=== PATIENT | male | born 1950 | race Caucasian/White ===

== ENCOUNTER 2018-06-03 17:16 | Inpatient (IN) | payer BC, MEDICARE ==
[2018-06-03] MEDS ORDERED: Ondansetron ODT 4 MG TAB ONE ×3 (17:32→17:36)
[2018-06-03 18:28] LABS: #Eosinphils 0.1 thou/uL (0.0-0.7); #Lymphocytes 0.9 thou/uL (1.20-3.40); #Monocytes 0.7 thou/uL (0.11-0.59); #Neutrophils 9.9 thou/uL (1.40-6.50); %Basophils 0.1 % (0.0-1.0); %Eosinophils 0.6 % (0.0-10.0); %Lymphocytes 7.5 % (21.0-51.0); %Monocytes 5.9 % (0.0-10.0); %Neutrophils 85.9 % (42.0-75.0); Hemoglobin 12.9 g/dL (14.0-18.0); Red Blood Cell (RBC) Count 5.71 mill/uL (4.70-6.10); White Blood Cell (WBC) Count 11.5 thou/uL (4.8-10.8)
[2018-06-03 18:32] LABS: Mean Corpuscular HGB CONC 31.6 g/dL (32.0-36.0); Mean Corpuscular Hemoglobin 22.5 pg (27.0-31.0); Mean Corpuscular Volume 71.1 fL (78.0-98.0); RBC Distribution Width 14.2 % (11.5-14.5)
[2018-06-03 18:48] LABS: Anisocytosis SLIGHT = 6-15 cells (100X) (0-5/hpf); Basophilic Stippling SLIGHT = 1-2 cells (100X) (None Seen); Elliptocytes SLIGHT = 2-5 cells (100X) (0-1/hpf); Hypochromia SLIGHT = 6-15 cells (100X) (0-5/hpf); MDiff Complete? YES; Mean Platelet Volume 11.8 fL (7.4-10.4); Microcytosis SLIGHT = 6-15 cells (100X) (0-5/hpf); Platelet Count 120 thou/uL (130-400); Platelet Morphology Comment Appears Decreased; Tear Drops SLIGHT = 2-5 cells (100X) (0-1/hpf)
[2018-06-03 18:56] LABS: ALT (SGPT) 17 U/L (8-55); AST (SGOT) 17 U/L (5-34); Acetaminophen Less than 6.0 mcg/mL (10.0-30.0); Alcohol Less than 10 mg/dL (Less than 10); Alkaline Phosphatase 68 U/L (40-150); Anion Gap 15 mmol/L (10-20); BUN (Urea Nitrogen) 20 mg/dL (8.4-25.7); Bilirubin, Total 1.2 mg/dL (0.2-1.2); CK (CPK) 79 U/L (30-200); Calc. Creatinine Clearance 0 mL/min (70-130); Calcium 9.7 mg/dL (7.8-10.44); Carbon Dioxide 25 mmol/L (23-31); Chloride 102 mmol/L (98-107); Estimated GFR-MDRD 63; Globulin 2.8 g/dL (2.4-3.5); Glucose 167 mg/dL (80-115); Lipase 14 U/L (8-78); Potassium 4.6 mmol/L (3.5-5.1); Protein, Total 6.8 g/dL (5.8-8.1); Salicylate Less than 8.0 mg/dL (15.0-30.0); Sodium 137 mmol/L (136-145)
--- NOTE | 2018-06-03 19:17 | CT ---
CT HEAD NONCONTRAST 06/03/18 HISTORY: Altered mental status. FINDINGS: No comparison. There is no evidence of acute intracranial hemorrhage or infarct. Prominent diffuse co rtical atrophy and chronic ischemic small vessel disease are apparent. There is no mass effect or naya ft of midline structures. Ventricles remain well aerated. IMPRESSION: Prominent atrophy and chronic ischemic disease. No acute intracranial abnormalities are demonstrated. POS: BST
--- NOTE | 2018-06-03 19:50 | RAD ---
CHEST ONE VIEW: 06/03/18 HISTORY: Altered mental status. Vomiting. FINDINGS: Cardiac silhouette is magnified by projection. Pulmonary vasculature is unremarkable. Mediastinum is midline. No lobar consolidation or evidence of pneumothorax. automatic presser leads overlie the chest. IMPRESSION: No active cardiopulmonary abnormalities are demonstrated. POS: BST
[2018-06-03] MEDS ORDERED: Aspirin Chewable 81 MG TAB ONE (19:58)
[2018-06-03 21:43] LABS: Amphetamine Not Detected (NotDetected); Barbiturates Screen Not Detected (NotDetected); Benzodiazepine Screen Not Detected (NotDetected); Cocaine Metabolite Screen Not Detected (NotDetected); Medtox Control Line Valid? VALID (VALID); Medtox Reader # READER 1; Methadone Not Detected (NotDetected); Methamphetamine Not Detected (NotDetected); Opiate Screen Not Detected (NotDetected); Oxycodone Screen Not Detected (NotDetected); Phencyclidine (PCP) Not Detected (NotDetected); THC/Cannabinoid Screen Not Detected (NotDetected); Tricyclic Screen Not Detected (NotDetected)
[2018-06-03] MEDS ORDERED: Acetaminophen 650 MG Suppository PR PRN (21:58)
[2018-06-03] MEDS ORDERED: Ondansetron PF 4 MG/2 ML Vial IVP PRN (21:58)
[2018-06-03] MEDS ORDERED: Ondansetron ODT 4 MG TAB PO PRN (21:58)
[2018-06-03 22:12] LABS: Bilirubin Negative (Negative); Blood, Urine Small (Negative); Clarity CLEAR (Clear); Glucose, Urine (Dipstick) Negative (Negative); Leukocyte Negative (Negative); Nitrite Negative (Negative); Protein, Urine (Dipstick) 30 mg/dL (Neg-Trace); Specific Gravity, Urine 1.023 (1.002-1.036); Urobilinogen 0.2 mg/dL (0.2-1.0)
[2018-06-03 22:14] LABS: Bacteria/HPF None Seen HPF (None Seen); Hyaline Casts/LPF 0-3 HYALINE CAST LPF (0-3 Hyaline); Pathc Cast-AUWi Flag 0.43 (0-2.49); Squamous Epithelial 0-3 HPF (0-3); WBC/HPF 0-3 HPF (0-3)
[2018-06-03 23:07] VITALS: BMI 39.6
[2018-06-04 05:41] LABS: #Eosinphils 0.1 thou/uL (0.0-0.7); #Lymphocytes 1.2 thou/uL (1.20-3.40); #Monocytes 0.7 thou/uL (0.11-0.59); #Neutrophils 5.5 thou/uL (1.40-6.50); %Basophils 0.1 % (0.0-1.0); %Eosinophils 1.4 % (0.0-10.0); %Lymphocytes 16.2 % (21.0-51.0); %Monocytes 9.7 % (0.0-10.0); %Neutrophils 72.5 % (42.0-75.0); Hemoglobin 12.2 g/dL (14.0-18.0); Mean Corpuscular HGB CONC 31.9 g/dL (32.0-36.0); Mean Corpuscular Hemoglobin 22.6 pg (27.0-31.0); Mean Corpuscular Volume 70.8 fL (78.0-98.0); Mean Platelet Volume 11.5 fL (7.4-10.4); Platelet Count 112 thou/uL (130-400); RBC Distribution Width 14.2 % (11.5-14.5); White Blood Cell (WBC) Count 7.5 thou/uL (4.8-10.8)
[2018-06-04 05:58] LABS: Anion Gap 12 mmol/L (10-20); BUN (Urea Nitrogen) 16 mg/dL (8.4-25.7); Calc. Creatinine Clearance 111 mL/min (70-130); Calcium 8.9 mg/dL (7.8-10.44); Carbon Dioxide 24 mmol/L (23-31); Cardiac Risk 2.4 (Less than 4.5); Chloride 105 mmol/L (98-107); Cholesterol 85 mg/dl (< 200 Desired); Estimated GFR-MDRD 74; Glucose 100 mg/dL (80-115); HDL Cholesterol 36 mg/dL (>60 Neg Risk); LDL Cholesterol, Calculated 28 mg/dL; Sodium 137 mmol/L (136-145); Triglycerides 103 mg/dL (Less than 150)
--- NOTE | 2018-06-04 07:33 | ULT ---
CAROTID ULTRASOUND WITH JHA SCALE AND DOPPLER DUPLEX COLOR FLOW IMAGING SPECTRAL ANALYSIS PERFORMED: DATE: 06/03/18 CLINICAL INDICATION: CVA, TIA. FINDINGS: There is scattered mild atherosclerotic calcification of the carotid arteries. PEAK SYSTOLIC VELOCITY (cm/s): Right CCA 119 Left CCA 120 Right ICA 72 Left ICA 72 There is antegrade flow within the visualized bilateral vertebral arteries. IMPRESSION: 1. No hemodynamically significant stenosis of the right internal carotid artery. 2. No hemodynamically significant stenosis of the left internal carotid artery. POS: [place]
[2018-06-04] MEDS ORDERED: Famotidine/PF 20 mg/2ml Vial SLOW IVP SCH (09:00)
[2018-06-04] MEDS: Enoxaparin Sodium 40 MG/0.4 ML SYRINGE SC SCH (10:15)
--- NOTE | 2018-06-04 10:15 | MRI ---
MRI BRAIN NONCONTRAST: Date: 06/03/18 HISTORY: Altered mental status. CVA. FINDINGS: There is no evidence of acute intracranial hemorrhage or infarct. Diffuse cortical atrophy. Moderate chronic ischemic small vessel disease within the periventricular white matter. There is no mass effec t or shift of midline structures. Appropriate flow-voids within the arterial structures of the brain base. IMPRESSION: 1. Prominent diffuse atrophy. Chronic ischemic small vessel disease. 2. No acute intracranial abnormalities are demonstrated. POS: [place]
[2018-06-04] MEDS: Acetaminophen 325 MG TAB PO PRN (10:16)
[2018-06-04] MEDS: Aspirin 325 mg Enteric Coated Tablet PO SCH (10:16)
--- NOTE | 2018-06-04 13:44 | HP ---
PRIMARY CARE PROVIDER: Zachery Milan MD. CHIEF COMPLAINT: Vomiting. HISTORY OF PRESENT ILLNESS: Mr. Garcia is a pleasant 67-year-old gentleman who was seen at [facility] on June 04, 2018. He has a history of dementia. He is a poor historian. History was obtained from the patient's and review of medical records. In 2010, the patient reportedly had a hemorrhagic stroke. That same year, he was diagnosed with coronary artery disease and had two coronary stents. He also had kidney surgery and cholecystectomy. In 2016, he had spinal stenosis surgery. In 2016, he had left knee replaced. He was following neurologist, Dr. Stefany Browne. Dr. Stefany Browne is no longer working here. The patient saw a new neurologist a few days ago. His reports that over the last 3 days, she has noticed a change in his cognition. He is more confused. Yesterday, he was waiting outside in the car while his was getting her hair done. Passengers in the next car noticed that he was vomiting. His went out to see him. He was reportedly vomiting. There is also some confusion as to whether he lost his consciousness. reports that the patient has bite moe over his tongue. The patient denies any chest pain or shortness of breath. He denies any fevers or chills. His reports that he used to vomit about 3 times a month. Off late, he has been vomiting more frequently. REVIEW OF SYSTEMS: All other systems reviewed and found to be negative. PAST MEDICAL HISTORY: Gastroesophageal reflux disease, hypertension, coronary artery disease, and dementia. PAST SURGICAL HISTORY: PCI with coronary stents, left knee replacement, left foot surgery with plate and screws, cholecystectomy, and dialysis shunt. PSYCHIATRIC HISTORY: Anxiety. SOCIAL HISTORY: Rare alcohol use, no tobacco use or recreational drug use. FAMILY HISTORY: Cerebral hemorrhage in both parents. ALLERGIES: TETRACYCLINE. CURRENT MEDICATIONS: 1. Allopurinol 100 mg 2 times a day. 2. Amlodipine 5 mg daily. 3. Bupropion 450 mg daily. 4. Donepezil 5 mg at bedtime. 5. Losartan 100 mg daily. 6. Metformin 500 mg 2 times a day. 7. Toprol-XL 50 mg daily. 8. Multivitamins 1 tablet daily. 9. [place]-3 one capsule daily. 10. Ditropan XL 10 mg daily. 11. Potassium citrate 15 mEq 2 times a day. 12. Tamsulosin 0.4 mg daily. PHYSICAL EXAMINATION: GENERAL: On examination, Mr. Garcia is awake and alert, not in acute distress. VITAL SIGNS: Blood pressure is 121/74, pulse 64, respiratory rate 16, and oxygen saturation 92% on room air. He is afebrile. He is obese, with a BMI of 39.6. EYES: No scleral icterus, no conjunctival pallor. ENT: Moist mucosal membranes. No oropharyngeal erythema or exudates. The patient has bite moe over his tongue. NECK: Supple, nontender, trachea is midline. RESPIRATORY: Accessory muscles of breathing are not active. Chest wall movements are symmetric bilaterally. Lungs are clear to auscultation without wheeze, rhonchi, or crepitations. CARDIOVASCULAR: S1 and S2 are heard, regular. Peripheral pulses palpable. No carotid bruit. No pericardial rub. ABDOMEN: Soft, nontender, bowel sounds heard, no hepatomegaly, no splenomegaly. NEUROLOGIC: Cranial nerves 2 through 12 are intact. Power is 5/5 in all four extremities. No focal motor or sensory deficits. Deep tendon reflexes 2+, plantars downgoing bilaterally. MUSCULOSKELETAL: Power is 5/5 in all four extremities. SKIN: No rashes or subcutaneous nodules. LYMPHATIC: No cervical lymphadenopathy. PSYCHIATRIC: Normal mood, normal affect, the patient is oriented to person and place only, not to time. LABORATORY DATA: Mr. Garcia's labs and investigations were reviewed. I reviewed his electrocardiogram, which shows normal sinus rhythm, no ST changes to suggest an acute coronary syndrome. I also reviewed his chest x-ray, which does not show any pulmonary infiltrates. He had noncontrast CT scan of the brain, which did not show any acute intracranial abnormality. He has prominent atrophy and chronic ischemic disease. MRI of the brain did not show any acute intracranial abnormality. He has chronic ischemic small-vessel disease. Carotid Doppler study did not show any hemodynamically significant of either internal carotid artery. He also had 2D echocardiogram, report is pending. He had leukocytosis when he initially presented to the emergency room, which has normalized now. He has microcytic anemia with hemoglobin 12.2, thrombocytopenia with platelet count of 112,000, unremarkable comprehensive metabolic profile, normal prolactin, normal TSH, fasting triglyceride level of 103, cholesterol 85, LDL cholesterol 28, HDL cholesterol 36, urinalysis positive for protein, small amount of blood and RBCs and negative urine toxicology screen. ASSESSMENT AND PLAN: Mr. Garcia is a pleasant 67-year-old gentleman who was seen at [facility] on June 04, 2018. His problem list includes: 1. Acute metabolic encephalopathy: This is superimposed on the background of dementia. The patient is being admitted to the hospital for further workup. He already had some testing done, as reported in the results section. He is awaiting Neurology Service input. I will also order an EEG to rule out seizure and postictal confusion as a cause of encephalopathy. 2. Nausea and vomiting: The patient's reports that his nausea and vomiting have been getting worse. We will consult the GI Service for opinion and help with management. 3. Dementia: We will continue donepezil. 4. Diabetes mellitus type 2: We will start Accu-Cheks and insulin sliding scale. 5. Coronary artery disease: Appears to be stable. 6. Hypertension: We will resume home medications, monitor vital signs and titrate antihypertensives as needed. Many thanks for allowing me to participate in your patient's care. Please feel free to contact me with any questions or concerns. LEVEL OF RISK: High. LEVEL OF COMPLEXITY: High. Job ID: [id number]
[2018-06-04] MEDS: metFORMIN 500 MG TAB PO SCH (17:01)
[2018-06-04] MEDS ORDERED: Sodium Chloride 0.9% (PF) 10 ML VIAL FS PRN (17:24)
[2018-06-04] MEDS: Potassium Citrate 10 MEQ TAB PO SCH (20:18)
[2018-06-04] MEDS: Allopurinol 100 MG TAB PO SCH (20:19)
[2018-06-04] MEDS: Tamsulosin HCl 0.4 MG CAP PO SCH (20:19)
[2018-06-04] MEDS: Pantoprazole 40 MG VIAL IVP SCH (20:19)
[2018-06-04] MEDS: Donepezil HCl 5 MG TAB PO SCH (20:19)
--- NOTE | 2018-06-04 20:34 | RAD ---
ABDOMEN ONE VIEW: 06/04/18 HISTORY: Abdomen pain. FINDINGS: Gas and stool over the rectum. Small bowel gas pattern is nonspecific. Metallic clips overlie the gal lbladder fossa and right lower pelvis. Phleboliths overlie the pelvis. IMPRESSION: Postoperative changes. Nonspecific small bowel gas pattern. POS: BST
[2018-06-04] MEDS ORDERED: Famotidine 20 MG TAB PO SCH (21:00)
[2018-06-05 06:05] LABS: Anion Gap 11 mmol/L (10-20); BUN (Urea Nitrogen) 15 mg/dL (8.4-25.7); Calc. Creatinine Clearance 117 mL/min (70-130); Carbon Dioxide 25 mmol/L (23-31); Chloride 107 mmol/L (98-107); Estimated GFR-MDRD 79; Glucose 87 mg/dL (80-115); Potassium 3.9 mmol/L (3.5-5.1); Sodium 139 mmol/L (136-145)
[2018-06-05 06:37] LABS: #Eosinphils 0.1 thou/uL (0.0-0.7); #Lymphocytes 1.2 thou/uL (1.20-3.40); #Monocytes 0.6 thou/uL (0.11-0.59); #Neutrophils 3.6 thou/uL (1.40-6.50); %Basophils 0.2 % (0.0-1.0); %Eosinophils 2.4 % (0.0-10.0); %Lymphocytes 21.6 % (21.0-51.0); %Monocytes 11.1 % (0.0-10.0); %Neutrophils 64.7 % (42.0-75.0); MDiff Complete? YES; Mean Corpuscular HGB CONC 31.8 g/dL (32.0-36.0); Mean Corpuscular Hemoglobin 22.1 pg (27.0-31.0); Mean Corpuscular Volume 69.4 fL (78.0-98.0); Mean Platelet Volume 11.6 fL (7.4-10.4); Microcytosis SLIGHT = 6-15 cells (100X) (0-5/hpf); Platelet Count 108 thou/uL (130-400); Platelet Morphology Comment Appears Decreased; RBC Distribution Width 14.1 % (11.5-14.5); Red Blood Cell (RBC) Count 5.41 mill/uL (4.70-6.10); White Blood Cell (WBC) Count 5.6 thou/uL (4.8-10.8)
[2018-06-05] MEDS: metFORMIN 500 MG TAB PO SCH ×2 (07:47→16:33)
[2018-06-05] MEDS: Enoxaparin Sodium 40 MG/0.4 ML SYRINGE SC SCH (07:47)
[2018-06-05] MEDS: Aspirin 325 mg Enteric Coated Tablet PO SCH (07:48)
[2018-06-05] MEDS: Pantoprazole 40 MG VIAL IVP SCH (11:56)
[2018-06-05] MEDS: Tamsulosin HCl 0.4 MG CAP PO SCH ×2 (12:03→20:39)
[2018-06-05] MEDS: Allopurinol 100 MG TAB PO SCH ×2 (12:03→20:39)
[2018-06-05] MEDS: Potassium Citrate 10 MEQ TAB PO SCH ×2 (12:03→20:43)
[2018-06-05] MEDS: Multivitamin W/ Minerals 1 TAB PO SCH (12:04)
[2018-06-05] MEDS: Bupropion 150 MG XL TAB PO SCH (12:10)
[2018-06-05] MEDS: Amlodipine 5 MG TAB PO SCH (12:10)
[2018-06-05] MEDS: Losartan 25 MG TAB PO SCH (12:10)
[2018-06-05] MEDS: Oxybutynin ER 5 MG TAB PO SCH (12:11)
--- NOTE | 2018-06-05 13:07 | PDOC.PN ---
- Subjective Encounter Start Date: 06/05/18 Encounter Start Time: 13:05 Pt seen for followup re: acute metabolic encephalopathy. feels better today, no complaints. - Objective Resuscitation Status - Order Detail: 06/04/18 12:49 Resuscitation Status Routine Resuscitation Status: FULL: Full Resuscitation Discussed with: patient's Vital Signs & Weight: Vital Signs (12 hours) Temp Pulse Resp BP Pulse Ox 06/05/18 12:10 55 L 06/05/18 11:56 98.3 F 55 L 16 125/79 93 L 06/05/18 08:00 98.1 F 60 20 125/83 94 L 06/05/18 04:00 98.8 F 62 16 121/76 93 L Weight Admit Weight 238 lb Weight 238 lb I&O: 06/04/18 06/05/18 06/06/18 06:59 06:59 06:59 Intake Total 1195 Balance 1195 Result Diagrams: 06/05/18 04:38 06/05/18 04:38 Additional Labs: Accuchecks 06/05/18 06/05/18 06/04/18 12:03 05:57 20:15 POC Glucose 90 91 136 H 06/04/18 16:33 POC Glucose 119 H Phys Exam - Physical Examination Obese HEENT: moist MMs Neck: supple Respiratory: clear to auscultation bilateral Cardiovascular: RRR Gastrointestinal: soft Neurological: moves all 4 limbs Psychiatric: normal affect Deviation from normal: Oriented to person and place, not to time Dx/Plan (1) Acute metabolic encephalopathy Code(s): G93.41 - METABOLIC ENCEPHALOPATHY Status: Acute Comment: Improving (2) DM2 (diabetes mellitus, type 2) Status: Chronic Comment: controlled (3) Dementia Code(s): F03.90 - UNSPECIFIED DEMENTIA WITHOUT BEHAVIORAL DISTURBANCE Status: Chronic Comment: continue donepezil (4) HTN (hypertension) Code(s): I10 - ESSENTIAL (PRIMARY) HYPERTENSION Status: Chronic Comment: controlled (5) Nausea and vomiting Code(s): R11.2 - NAUSEA WITH VOMITING, UNSPECIFIED Status: Resolved Comment : s/p EGD - Plan plan discussed w/ family, PT/OT, out of bed/ambulate * . Await urology consult, urine culture Review of Systems - Review of Systems Respiratory: negative: Cough, Shortness of Breath, SOB with Excertion, Pleuritic Pain, Wheezing Cardiovascular: negative: chest pain, palpitations, orthopnea, paroxysmal nocturnal dyspnea, edema, light headedness - Medications/Allergies Allergies/Adverse Reactions: Allergies Allergy/AdvReac Type Severity Reaction Status Date / Time tetracycline Allergy Severe Anaphylaxis Verified 06/03/18 23:36 Medications: Current Medications Acetaminophen (Tylenol) 650 mg PO Q4H PRN PRN Reason: Headache/Fever/Mild Pain (1-3) Last Admin: 06/04/18 10:16 Dose: 650 mg Acetaminophen (Tylenol) 650 mg AK Q4H PRN PRN Reason: Headache/Fever/Mild Pain (1-3) Allopurinol (Zyloprim) 100 mg PO BID [facility] Last Admin: 06/05/18 12:03 Dose: Not Given Amlodipine Besylate (Norvasc) 5 mg PO DAILY [facility] Last Admin: 06/05/18 12:10 Dose: 5 mg Aspirin (Ecotrin) 325 mg PO DAILY [facility] Last Admin: 06/05/18 07:48 Dose: Not Given Bupropion HCl (Wellbutrin Xl) 450 mg PO DAILY [facility] Last Admin: 06/05/18 12:10 Dose: 450 mg Donepezil HCl (Aricept) 5 mg PO HS [facility] Last Admin: 06/04/18 20:19 Dose: 5 mg Enoxaparin Sodium (Lovenox) 40 mg SC 0900 [facility] Last Admin: 06/05/18 07:47 Dose: Not Given Fish Oil (Fish Oil) 1,000 mg PO [facility] Iron/Minerals/Multivitamins (Theragran M) 1 tab PO DAILY [facility] Last Admin: 06/05/18 12:04 Dose: Not Given Losartan Potassium (Cozaar) 100 mg PO DAILY [facility] Last Admin: 06/05/18 12:10 Dose: 100 mg Metformin HCl (Glucophage) 500 mg PO BID[facility] Last Admin: 06/05/18 07:47 Dose: Not Given Metoprolol Succinate (Toprol Xl) 50 mg PO DAILY [facility] Last Admin: 06/05/18 06:04 Dose: 50 mg Ondansetron HCl (Zofran Odt) 4 mg PO Q6H PRN PRN Reason: Nausea/Vomiting Ondansetron HCl (Zofran) 4 mg IVP Q6H PRN PRN Reason: Nausea/Vomiting Oxybutynin Chloride (Ditropan Xl) 10 mg PO DAILY [facility] Last Admin: 06/05/18 12:11 Dose: 10 mg Pantoprazole Sodium (Protonix) 40 mg PO DAILY [facility] Pantoprazole Sodium (Protonix) 40 mg PO 1200 [facility] Stop: 06/05/18 14:00 Last Admin: 06/05/18 12:11 Dose: 40 mg Potassium Citrate (Urocit K) 15 meq PO BID [facility] Last Admin: 06/05/18 12:03 Dose: Not Given Sodium Chloride (Flush - Normal Saline) 10 ml IVF PRN PRN PRN Reason: Saline Flush Sodium Chloride (Normal Saline Pf) 10 ml FS PRN PRN PRN Reason: RECONSTITUTION Last Admin: 06/04/18 20:19 Dose: 10 ml Tamsulosin HCl (Flomax) 0.4 mg PO BID [facility] Last Admin: 06/05/18 12:03 Dose: Not Given
[2018-06-05] MEDS ORDERED: PROPOFOL 200 MG/20 ML VIAL ONE (14:36)
[2018-06-05] MEDS: Acetaminophen 325 MG TAB PO PRN (17:20)
[2018-06-05] MEDS: Donepezil HCl 5 MG TAB PO SCH (20:38)
[2018-06-05] MEDS ORDERED: Fish Oil 1,000 MG CAP PO SCH (21:00)
[2018-06-06] MEDS: Acetaminophen 325 MG TAB PO PRN ×2 (00:18→08:05)
[2018-06-06 05:41] LABS: #Eosinphils 0.2 thou/uL (0.0-0.7); #Lymphocytes 1.3 thou/uL (1.20-3.40); #Monocytes 0.7 thou/uL (0.11-0.59); #Neutrophils 4.5 thou/uL (1.40-6.50); %Eosinophils 2.3 % (0.0-10.0); %Lymphocytes 20.1 % (21.0-51.0); %Monocytes 10.1 % (0.0-10.0); %Neutrophils 67.5 % (42.0-75.0); Hemoglobin 12.6 g/dL (14.0-18.0); Mean Corpuscular Hemoglobin 21.9 pg (27.0-31.0); Mean Corpuscular Volume 70.8 fL (78.0-98.0); Mean Platelet Volume 11.1 fL (7.4-10.4); Platelet Count 120 thou/uL (130-400); RBC Distribution Width 14.3 % (11.5-14.5); Red Blood Cell (RBC) Count 5.73 mill/uL (4.70-6.10); White Blood Cell (WBC) Count 6.6 thou/uL (4.8-10.8)
[2018-06-06 06:03] LABS: Anion Gap 14 mmol/L (10-20); BUN (Urea Nitrogen) 17 mg/dL (8.4-25.7); Calc. Creatinine Clearance 92 mL/min (70-130); Calcium 9.2 mg/dL (7.8-10.44); Carbon Dioxide 23 mmol/L (23-31); Chloride 105 mmol/L (98-107); Estimated GFR-MDRD 60; Glucose 126 mg/dL (80-115); Sodium 138 mmol/L (136-145)
[2018-06-06 07:41] VITALS: TEMP 98.4
[2018-06-06] MEDS: Enoxaparin Sodium 40 MG/0.4 ML SYRINGE SC SCH (08:04)
[2018-06-06] MEDS: Bupropion 150 MG XL TAB PO SCH (08:05)
[2018-06-06] MEDS: Amlodipine 5 MG TAB PO SCH (08:06)
[2018-06-06] MEDS: Oxybutynin ER 5 MG TAB PO SCH (08:06)
[2018-06-06] MEDS: Losartan 25 MG TAB PO SCH (08:06)
[2018-06-06] MEDS: metFORMIN 500 MG TAB PO SCH (08:06)
[2018-06-06] MEDS: Aspirin 325 mg Enteric Coated Tablet PO SCH (08:07)
[2018-06-06] MEDS: Potassium Citrate 10 MEQ TAB PO SCH (08:07)
[2018-06-06] MEDS: Tamsulosin HCl 0.4 MG CAP PO SCH (08:07)
[2018-06-06] MEDS: Multivitamin W/ Minerals 1 TAB PO SCH (08:07)
[2018-06-06] MEDS: Allopurinol 100 MG TAB PO SCH (08:08)
[2018-06-06] MEDS ORDERED: Lidocaine 2% Viscous Solution 10 ML, Aluminum & Magnesium Hydroxide 30 ML SSP SCH (09:15)
--- NOTE | 2018-06-06 09:42 | CON ---
DATE OF CONSULTATION: 06/04/2018 REASON FOR CONSULT: I have been consulted by Dr. Benjamin regarding a few episodes of vomiting this patient has had recently. HISTORY OF PRESENT ILLNESS: It comes mainly from the patient's . The patient has had a previous stroke back in 2010, it was hemorrhagic, he does add to the history though as well. Mr. Garcia was brought to the emergency room by his yesterday who is with him. She had been out in the retail setting and was waiting for her in the car, which is not unusual and since he has had a stroke, he has been retired and he will go to therapy but some days he will accompany her on her chores and other events. Apparently, she received a call overhead from the store facility she was in that her is having problems, so she went back to the parking lot and apparently while sitting in the car, another person in the car near him noticed that he had thrown up and then became unresponsive. They described the appearance of what was going on to EMS as possibly being a stroke. The patient's notes the vomit was dark in color, but he had no blood in the vomit. When she got there, he was not himself, but definitely was not unconscious. He had no pain or complaints at that time and did not injure himself. She states within about 30 minutes to an hour, he was back to himself, but ultimately they came in because of that for evaluation. Emergency note states that passerby or the person in the adjacent car saw him unconscious and covered in vomit and that is why EMS was summoned. The notes about earlier this week several days, she had come home and he had an episode of vomiting and he had a lot of blood in his mouth as he bit his tongue and really did not remember the episode. He had no pain and no evidence of fall or trauma from falls, but he was unclear exactly what happened. These two episodes were new. He has had some episodes in the past several months, a little bit of nausea, occasionally regurgitating after a meal. In fact, he had an upper GI recently at the [facility] that showed some reflux, but not much else. A talk with the patient and the , there has been no change in his appetite. He has been a good eater. He has had no melena. His bowels move well. He denies abdominal pain. He felt completely fine between these episodes. He has never had any prior history of seizures. He denies any chest pain or chest tightness. He denies any diaphoresis with these episodes. He denies any even nausea. He said the episodes come on quite quickly. REVIEW OF SYSTEMS: He had no fever, chills, rashes, myalgias, arthralgias, headaches, gross bloody emesis, melena, or rectal bleeding. He has had no weight loss. No chest pain, shortness of breath, diaphoresis, dysphagia, or odynophagia. PAST MEDICAL HISTORY: Reflux. He had been on a PPI for a few weeks earlier this year, but that was stopped. Apparently, he was having some lot of nausea and belching while he was on higher dose of donepezil but that was cut back and the symptoms stopped, so he stopped the medication. He has some sleep apnea and he using BiPAP while sleeping. History of hypertension, coronary artery disease, mild vascular dementia, and prior strokes. PAST SURGICAL HISTORY: Heart stent x2, left knee replacement, left foot has plate and screw, previous cholecystectomy, previous colonoscopy [place] [address] Vargas. Surgical history of dialysis shunt in the past, prior history of back surgery. PSYCHIATRIC HISTORY: None. SOCIAL HISTORY: Rarely uses alcohol. No tobacco. No drug use. FAMILY HISTORY: Parents has cerebral hemorrhage. ALLERGIES: TETRACYCLINE. MEDICATIONS: 1. Allopurinol. 2. Amlodipine. 3. Bupropion. 4. Donepezil. 5. Losartan. 6. Metformin. 7. Metoprolol. 8. Multivitamin. 9. [place]-3. 10. Ditropan. 11. Tamsulosin. 12. Potassium. Medications here; 1. Tylenol. 2. Allopurinol. 3. Norvasc. 4. Aspirin 325. 5. Wellbutrin. 6. Aricept which is donepezil. 7. Lovenox subcu. 8. Pepcid. 9. Theragran. 10. Losartan. 11. Metformin. 12. Zofran. 13. Ditropan. 14. Potassium citrate. 15. Flomax. PHYSICAL EXAMINATION: GENERAL: The patient is resting comfortably in bed. He has actually had a pretty good sense of humor and seems to have a pretty good acknowledgement of his history, but does not remember some details fully. VITAL SIGNS: Temperature is 98.4, pulse 62, and blood pressure 115/78. LUNGS: Clear. HEART: Regular rate and rhythm. No rubs, gallops, or murmurs. ABDOMEN: Soft and nontender without palpable hepatomegaly. EXTREMITIES: No clubbing, cyanosis, or edema. ABDOMEN: Slightly protuberant, but he is not overly obese. There is no rebound. There is no guarding. There is no right upper quadrant tenderness. There is no hernias noted. LABORATORY DATA: White count 7.5, hemoglobin 12.3, and platelet count 112, was high as 125. On 06/04/2018, basement profile normal. On 06/03/2018, liver function is normal. Bilirubin 1.2, AST and ALT are 17 and 17, alkaline phosphatase 68, lipase is 14. TSH is 1.6. Prolactin was 11. Ammonia was 24. ASSESSMENT: Episodes of emesis for the past couple of days, which have been associated with some changes in mentation or questionable maybe a seizure. He has had an MRI here of his brain and nondiagnostic laboratory studies, Dopplers, and a chest x-ray which have been normal. He has a history of coronary artery disease, but denies any chest pain or angina, shortness of breath or diaphoresis. Doppler studies have been normal. There has been some concern for reflux recently and apparently, he has of his upper GI symptoms a few months ago because he had an upper GI at the [facility]. He does have a history of diabetes, gastroparesis is a possibility, but his notes that his sugars have been very well controlled. RECOMMENDATIONS: 1. If he has no further neurologic events, we would consider an EGD tomorrow. The nurses told me that may be he is going to need Neurology consult at some point time during this hospitalization and has not happened yet and he may be having EEG at some point in time. Although if he would have any further neurologic processes, we would have to hold off any invasive studies. I am going to put him on a PPI, get an x-ray to make sure there are no signs of overt constipation or obstipation. 2. He has some thrombocytopenia, etiology that is unclear. I was concerned for portal hypertensive change, but his liver enzymes are normal and his amylase is normal. We will talk with the family further about that. If it has not been a chronic issue, we can consider further evaluation. Job ID: [id number]
[2018-06-06 12:16] VITALS: BP 122/76
--- NOTE | 2018-06-06 12:55 | OP ---
DATE OF PROCEDURE: 06/05/2018 PROCEDURE PERFORMED: Esophagogastroduodenoscopy with biopsy. PREPROCEDURE DIAGNOSES: 1. Intermittent vomiting. 2. Episode of vomiting of dark material a few days ago with a questionable episode of loss of consciousness and tongue-biting. POSTPROCEDURE DIAGNOSES: 1. LA grade A reflux esophagitis with slightly irregular squamocolumnar junction. Biopsied to rule out Andujar's. 2. Hiatal hernia 3 cm extending from the hiatus at 41 cm to the proximal aspect of the gastric folds with Z-line at 38 cm. 3. Mild erosive gastritis in the antrum. Biopsies obtained. No bleeding sites identified. 4. Otherwise, normal stomach, duodenum, and esophagus. RECOMMENDATIONS: 1. Protonix 40 mg p.o. daily. 2. In light of the intermittent vomiting, we will go ahead and get a gastric emptying scan tomorrow if the patient is still here. If he is going to go home, may consider as an outpatient if he does not improve. ANESTHESIA: TIVA. PROCEDURE IN DETAIL: The patient was informed of the risks, benefits, and possible complications of endoscopy including perforation, reaction to medication, and aspiration, and informed consent was obtained. The patient was brought to endoscopy suite, where he was sedated in gradual fashion. Once he was comfortable, a bite block was placed inside his orifice. The endoscope was advanced to the esophagus, stomach, and second and third portions of the duodenum and slowly removed. There was good visualization of mucosa. There were no mass lesions or AV malformations identified. However, there was reflux esophagitis, LA grade A at the distal esophagus at about 38 cm inside orifice. The Z-line was a little bit irregular, but there was no evidence of long segment Andujar's. Biopsies were obtained from this area. The hiatus was noted at 40 cm. The stomach was entered and found to be normal except for some small nonbleeding erosions in the antrum. Biopsies were obtained of these. Retroflexed views in the stomach were normal showing a hiatal hernia. The duodenum was normal up to third portion. The scope was removed. The patient tolerated the procedure well. There were no complications. Job ID: [id number]
--- NOTE | 2018-06-06 12:57 | PDOC.PN ---
- Subjective Encounter Start Date: 06/06/18 Encounter Start Time: 07:20 Pt seen for followup re: acute metabolic encephalopathy. Feels better. No nausea or vomiting. - Objective Resuscitation Status - Order Detail: 06/04/18 12:49 Resuscitation Status Routine Resuscitation Status: FULL: Full Resuscitation Discussed with: patient's Vital Signs & Weight: Vital Signs (12 hours) Temp Pulse Pulse Resp BP BP Pulse Ox 06/06/18 10:02 62 122/76 06/06/18 08:06 64 06/06/18 07:40 98.4 F 64 20 137/86 96 06/06/18 04:00 98.2 F 65 16 138/83 93 L Weight Admit Weight 238 lb Weight 238 lb I&O: 06/05/18 06/06/18 06/07/18 06:59 06:59 06:59 Intake Total 1195 1260 Output Total 150 Balance 1195 1110 Result Diagrams: 06/06/18 05:25 06/06/18 05:25 Additional Labs: Accuchecks 06/06/18 06/05/18 06/05/18 06:10 20:24 16:35 POC Glucose 128 H 87 161 H Phys Exam - Physical Examination obesity HEENT: moist MMs Neck: supple Respiratory: clear to auscultation bilateral Cardiovascular: RRR Gastrointestinal: soft Musculoskeletal: edema present Neurological: moves all 4 limbs Psychiatric: normal affect Dx/Plan (1) Acute metabolic encephalopathy Code(s): G93.41 - METABOLIC ENCEPHALOPATHY Status: Acute Comment: Improved (2) DM2 (diabetes mellitus, type 2) Status: Chronic Comment: controlled (3) Dementia Code(s): F03.90 - UNSPECIFIED DEMENTIA WITHOUT BEHAVIORAL DISTURBANCE Status: Chronic Comment: on donepezil (4) HTN (hypertension) Code(s): I10 - ESSENTIAL (PRIMARY) HYPERTENSION Status: Chronic Comment: controlled (5) Nausea and vomiting Code(s): R11.2 - NAUSEA WITH VOMITING, UNSPECIFIED Status: Resolved - Plan * . EEG today. Gastric emptying study today. Review of Systems - Review of Systems Cardiovascular: negative: chest pain, palpitations, orthopnea, paroxysmal nocturnal dyspnea, edema, light headedness Gastrointestinal: negative: Nausea, Vomiting, Abdominal Pain, Diarrhea, Constipation, Melena, Hematochezia - Medications/Allergies Allergies/Adverse Reactions: Allergies Allergy/AdvReac Type Severity Reaction Status Date / Time tetracycline Allergy Severe Anaphylaxis Verified 06/03/18 23:36 Medications: Current Medications Acetaminophen (Tylenol) 650 mg PO Q4H PRN PRN Reason: Headache/Fever/Mild Pain (1-3) Last Admin: 06/06/18 08:05 Dose: 650 mg Acetaminophen (Tylenol) 650 mg NE Q4H PRN PRN Reason: Headache/Fever/Mild Pain (1-3) Allopurinol (Zyloprim) 100 mg PO BID [facility] Last Admin: 06/06/18 08:08 Dose: 100 mg Amlodipine Besylate (Norvasc) 5 mg PO DAILY [facility] Last Admin: 06/06/18 08:06 Dose: 5 mg Aspirin (Ecotrin) 325 mg PO DAILY [facility] Last Admin: 06/06/18 08:07 Dose: 325 mg Bupropion HCl (Wellbutrin Xl) 450 mg PO DAILY [facility] Last Admin: 06/06/18 08:05 Dose: 450 mg Donepezil HCl (Aricept) 5 mg PO [facility] Last Admin: 06/05/18 20:38 Dose: 5 mg Enoxaparin Sodium (Lovenox) 40 mg SC 0900 [facility] Last Admin: 06/06/18 08:04 Dose: 40 mg Fish Oil (Fish Oil) 1,000 mg PO [facility] Last Admin: 06/05/18 20:38 Dose: 1,000 mg Iron/Minerals/Multivitamins (Theragran M) 1 tab PO DAILY [facility] Last Admin: 06/06/18 08:07 Dose: 1 tab Losartan Potassium (Cozaar) 100 mg PO DAILY [facility] Last Admin: 06/06/18 08:06 Dose: 100 mg Metformin HCl (Glucophage) 500 mg PO BID[facility] Last Admin: 06/06/18 08:06 Dose: 500 mg Metoprolol Succinate (Toprol Xl) 50 mg PO DAILY [facility] Last Admin: 06/06/18 08:07 Dose: 50 mg Ondansetron HCl (Zofran Odt) 4 mg PO Q6H PRN PRN Reason: Nausea/Vomiting Ondansetron HCl (Zofran) 4 mg IVP Q6H PRN PRN Reason: Nausea/Vomiting Oxybutynin Chloride (Ditropan Xl) 10 mg PO DAILY [facility] Last Admin: 06/06/18 08:06 Dose: 10 mg Pantoprazole Sodium (Protonix) 40 mg PO DAILY [facility] Last Admin: 06/06/18 08:07 Dose: 40 mg Potassium Citrate (Urocit K) 15 meq PO BID [facility] Last Admin: 06/06/18 08:07 Dose: 15 meq Sodium Chloride (Flush - Normal Saline) 10 ml IVF PRN PRN PRN Reason: Saline Flush Sodium Chloride (Normal Saline Pf) 10 ml FS PRN PRN PRN Reason: RECONSTITUTION Last Admin: 06/04/18 20:19 Dose: 10 ml Tamsulosin HCl (Flomax) 0.4 mg PO BID [facility] Last Admin: 06/06/18 08:07 Dose: 0.4 mg
--- NOTE | 2018-06-06 15:29 | EEG ---
Referring Physician: Leon FIGUEROA EEG # [id number] TEST TYPE: ROUTINE PORTABLE INPATIENT REPORT: AN EEG USING THE INTERNATIONAL TEN-TWENTY SYSTEM OF ELECTRODE PLACEMENT WAS PERFORMED. The best waking background is an 8 hertz occipitally dominant alpha frequency. The patient appeared drowsy at the start of the study. Photic stimulation was unremarkable. No epileptiform features were seen. IMPRESSION: THIS IS A NORMAL AWAKE AND DROWSY EEG. Entry Level Manufacturing Engineer: CHANCE Senior Environmental Consultant: [email or web address] ISAACS
--- NOTE | 2018-06-06 15:44 | NM ---
NUCLEAR MEDICINE GASTRIC EMPTYING WITH MEAL: HISTORY: Nausea and vomiting. COMPARISON: None. TECHNIQUE: The exam was performed after the oral administration of 1.8 millicuries of technetium 99m sulfur magdalena oid in egg. FINDINGS: At one-half hour, there was 42% gastric emptying. At one hour, there was 49% gastric emptying. At t wo hours, there was 59% gastric emptying. At three hours, there was 62% gastric emptying. At four h ours, there was 91% gastric emptying. IMPRESSION: Borderline gastric emptying with approximately 9% remaining at four hours and 38% remaining at three hours. POS: MONALISA
--- NOTE | 2018-06-06 16:28 | PRG ---
DATE OF SERVICE: 06/06/2018 SUBJECTIVE: Mr. Garcia, who is doing well today without complaints. He did have a gastric emptying scan, which showed borderline with 91% emptying at 4 hours. He has had no further vomiting since he has been here. Reportedly his EEG has been normal. OBJECTIVE: VITAL SIGNS: Stable. NECK: Supple. LUNGS: Clear. ABDOMEN: Nontender. ASSESSMENT: Nausea and vomiting, resolved. He does have some reflux esophagitis and mild gastritis, which was biopsied. RECOMMENDATIONS: 1. PPI once daily. 2. Avoid NSAIDs. 3. We will talk to the about issues with Namenda with anorexia and evidence of nausea to watch out for those types of symptoms. I will call them next week with the results of his gastric biopsies. Job ID: [id number]
--- NOTE | 2018-06-07 04:53 | DIS ---
DATE OF ADMISSION: 06/03/2018 DATE OF DISCHARGE: 06/06/2018 PRIMARY CARE PROVIDER: Zachery Milan MD DISCHARGE DIAGNOSES: 1. Acute metabolic encephalopathy. 2. borderline gastric emptying. CONSULTATIONS DURING THIS HOSPITALIZATION: 1. Gastroenterology, Dr. Adkins. 2. Neurology, Dr. Galan. CONDITION OF PATIENT ON THE DAY OF DISCHARGE: Stable. I assessed Mr. Garcia on the day of discharge. Please refer to my daily hospitalist progress note for further details regarding this [id number] encounter. DISCHARGE MEDICATIONS: His pre-admission home medications were continued as dictated on history and physical note dated June 04, 2018. Please note that the patient was also on pantoprazole 40 mg daily prior to admission and this is being continued. HOSPITAL COURSE: Mr. Garcia is a pleasant 67-year-old gentleman, who was admitted to [facility] on June 03, 2018, for acute metabolic encephalopathy, nausea, and vomiting. Please refer to my history and physical note dated June 04, 2018, for further details. He was seen by GI Service. He underwent EGD on June 05, which showed LA grade A reflux esophagitis with slightly irregular squamocolumnar junction, which was biopsied to rule out Andujar's. He also had hiatal hernia, mild erosive gastritis in the antrum from which biopsies were obtained. He was recommended to continue Protonix 40 mg daily. He also had a gastric emptying scan, which was borderline gastric emptying. He was seen by Neurology Service. MRI of the brain did not show any acute intracranial abnormality. He had prominent diffuse atrophy and chronic ischemic small-vessel disease. Carotid Dopplers did not show any hemodynamically significant stenosis of internal carotid arteries. He also had 2D echocardiogram, which showed left ventricular ejection fraction of 50% to 55%, mildly dilated left atrium, mild mitral regurgitation, and mild tricuspid regurgitation. EEG did not show any evidence of seizure. He is being discharged home in a stable condition. He is advised to follow up with his primary care provider, as well as with his neurologist at [facility]. On the day of discharge, he has white count 6600, hemoglobin 12.6, platelet count 120,000, normal electrolytes and normal creatinine. During this hospitalization , he had triglycerides 103, cholesterol 85, LDL cholesterol 28, and HDL cholesterol 36. Many thanks for allowing me to participate in your patient's care. Please feel free to contact me with any questions or concerns. DISCHARGE DESTINATION: Home. TIME SPENT: Total amount of time spent coordinating this discharge: 33 minutes. Job ID: [id number] [email or web address]
== END 2018-06-06 17:31 | disposition home or self-care (01) | DRG 72 ==
LOC: ERS 17:16 → 2SE 19:22
PROVIDERS: ADMIT Hospitalist; ATTEND Hospitalist
PROC: 0DB68ZX Excision of Stomach, Via Natural or Artificial Opening Endoscopic, Diagnostic (ICD-10-PCS; principal; 2018-06-05)
PROC: 0DB48ZX Excision of Esophagogastric Junction, Via Natural or Artificial Opening Endoscopic, Diagnostic (ICD-10-PCS; 2018-06-05)
DX: G93.41 Metabolic encephalopathy (principal); F03.90 Unspecified dementia, unspecified severity, without behavioral disturbance, psychotic disturbance, mood disturbance, and anxiety; E11.9 Type 2 diabetes mellitus without complications; I25.10 Atherosclerotic heart disease of native coronary artery without angina pectoris; I10 Essential (primary) hypertension; K21.0 Gastro-esophageal reflux disease with esophagitis; K44.9 Diaphragmatic hernia without obstruction or gangrene; K29.70 Gastritis, unspecified, without bleeding; F41.9 Anxiety disorder, unspecified; D69.6 Thrombocytopenia, unspecified; Z86.73 Personal history of transient ischemic attack (TIA), and cerebral infarction without residual deficits; Z88.1 Allergy status to other antibiotic agents; Z79.84 Long term (current) use of oral hypoglycemic drugs; Z79.899 Other long term (current) drug therapy; Z95.5 Presence of coronary angioplasty implant and graft; Z96.652 Presence of left artificial knee joint
CPT/HCPCS: 36415; 36416; 70450; 70551; 71045; 74018; 78264; 80048; 80053; 80061; 80306; 80307; 81003; 81015; 82140; 82550; 83690; 83880; 84146; 84443; 84484; 85025; 87086; 88305; 88312; 88313; 93005; 93306; 93880; 95816; 95819; 96360; A9541; C9113; J1650; J2704; Q0162; S0028